=== PATIENT | male | born 1980 | race Caucasian/White ===

== ENCOUNTER 2017-02-13 19:02 | Emergency (ER) | payer SELFPAY ==
--- NOTE | 2017-02-13 19:28 | NUR ---
PATIENT CALLED TO BE TRIAGE, NO RESPONSE.PATIENT LEFT WITHOUT BEING SEEN BY DR. CONCEPCION. NO FURTHER CARE PROVIDED FOR PATIENT.
== END 2017-02-13 19:28 | disposition left against medical advice (07) ==
LOC: MED 19:02
DX: Z53.21 Procedure and treatment not carried out due to patient leaving prior to being seen by health care provider (principal)